=== PATIENT | male | born 1950 | race Caucasian/White ===

== ENCOUNTER 2020-01-04 05:55 | Day surgery (SDC) | payer MEDICARE, OTHER ==
[~2020-01-04] VITALS: Ht 172.7 cm; Wt 83.5 kg
[2020-01-04] VITALS (10 sets, daily range): BP systolic 102–121; BP diastolic 60–79
[~2020-01-04 05:55] MED LIST: AMIO200T61 PO; ASPI-1265 PO; CARV3.12 PO; FLO0.4C PO; FOLI1TAB16 PO; FURO40TA4 PO; HC A30CR2 RC; LACT10SO PO; MULT-1179 PO; POTA20TA19 PO; PROP10TA10 PO
[2020-01-04] MEDS ORDERED: albumin 25% 100mL bottle x 1 IV PRN (07:15)
[2020-01-04] MEDS ORDERED: albumin (human) 25% 100ml IV 100 ML IV ONE (08:49)
[2020-01-04 10:08] LABS: ALBUMIN,BODY FLUID 0.7 G/DL
[2020-01-04 10:20] LABS: TOTAL PROTEIN,BODY FLUID < 2.0 G/DL
[2020-01-04 10:42] LABS: BFAPPEAR HAZY; BFCOLOR YELLOW; BFVOLUME 43 ML
[2020-01-04 10:43] LABS: BF RBC COUNT 303 /CU MM; BF WBC COUNT 76 /CU MM (0-1000)
[2020-01-04 10:44] LABS: LYMPHOCYTES,BODY FLUID 46 %; MONOCYTES,BODY FLUID 50 %; NEUTROPHILS,BODY FLUID 4 %
[2020-01-04 11:11] LABS: BF MESOTHELIAL CELLS FEW
[2020-01-04 11:13] LABS: BF UNCLASSIFIED CELLS FEW
== END 2020-01-04 09:40 | disposition home or self-care (01) ==
LOC: SSTAY O 05:55
PROVIDERS: ATTEND Radiology Diagnostic Radiology
DX: K70.31 Alcoholic cirrhosis of liver with ascites (principal)
CPT/HCPCS: 49083; 82042; 84157; 87070; 89051; P9047

== ENCOUNTER 2020-01-19 09:28 | Day surgery (SDC) | payer MEDICARE, MEDICAID ==
[~2020-01-19] VITALS: Ht 172.7 cm; Wt 79.7 kg
[2020-01-19 09:45] VITALS: BP 115/78
[2020-01-19] MEDS ORDERED: albumin 25% 100mL bottle x 1 IV PRN (09:55)
[2020-01-19] MEDS ORDERED: LEVO50TA8 PO (10:31)
[2020-01-19 11:47] VITALS: BP 107/69
[2020-01-19 12:05] VITALS: BP 109/67
[2020-01-19 12:20] VITALS: BP 100/47
[2020-01-19 12:40] VITALS: BP 95/65
== END 2020-01-19 13:00 | disposition home or self-care (01) ==
LOC: SSTAY O 09:28
PROVIDERS: ATTEND Radiology Vascular & Interventional Radiology
DX: R18.8 Other ascites (principal); I50.9 Heart failure, unspecified; I48.91 Unspecified atrial fibrillation; Z85.828 Personal history of other malignant neoplasm of skin; Z79.899 Other long term (current) drug therapy; Z95.0 Presence of cardiac pacemaker; Z98.890 Other specified postprocedural states; Z79.82 Long term (current) use of aspirin; Z72.89 Other problems related to lifestyle
CPT/HCPCS: 49083; P9047

== ENCOUNTER 2020-02-03 06:48 | Day surgery (SDC) | payer MEDICARE, MEDICAID ==
[2020-02-03] VITALS (7 sets, daily range): BP systolic 99–131; BP diastolic 46–76
[~2020-02-03] VITALS: Ht 172.7 cm; Wt 81.4 kg
[~2020-02-03 06:48] MED LIST changes: -AMIO200T61 PO; -CARV3.12 PO; -FLO0.4C PO; -HC A30CR2 RC; -LACT10SO PO; +LEVO50TA8 PO; -POTA20TA19 PO; -PROP10TA10 PO
[2020-02-03] MEDS ORDERED: albumin 25% 100mL bottle x 1 IV PRN (07:30)
== END 2020-02-03 09:25 | disposition home or self-care (01) ==
LOC: SSTAY O 06:48
PROVIDERS: ATTEND Radiology Vascular & Interventional Radiology
DX: R18.8 Other ascites (principal); K74.60 Unspecified cirrhosis of liver; I50.9 Heart failure, unspecified; I48.91 Unspecified atrial fibrillation; Z85.810 Personal history of malignant neoplasm of tongue; Z95.0 Presence of cardiac pacemaker; Z98.890 Other specified postprocedural states; Z79.82 Long term (current) use of aspirin; Z79.899 Other long term (current) drug therapy; Z80.8 Family history of malignant neoplasm of other organs or systems
CPT/HCPCS: 49083

== ENCOUNTER → 2020-02-22 | Day surgery (SDC) | payer MEDICARE, MEDICAID ==
[~2020-02-22] VITALS: Ht 172.7 cm; Wt 80.7 kg
[2020-02-22] VITALS (7 sets, daily range): BP systolic 94–121; BP diastolic 40–84
[~2020-02-22] MED LIST changes: +B12 INJ; +SPIR50TA5 PO; +albumin 25% 100mL bottle x 1 IV PRN
== END | disposition home or self-care (01) ==
LOC: SSTAY O 05:57
PROVIDERS: ATTEND Radiology Diagnostic Radiology
DX: R18.8 Other ascites (principal); I50.9 Heart failure, unspecified; I48.91 Unspecified atrial fibrillation; K74.60 Unspecified cirrhosis of liver; Z95.0 Presence of cardiac pacemaker; Z98.890 Other specified postprocedural states; Z79.899 Other long term (current) drug therapy; Z79.82 Long term (current) use of aspirin; Z85.810 Personal history of malignant neoplasm of tongue
CPT/HCPCS: 49083; P9047

== ENCOUNTER 2020-03-21 05:58 | Day surgery (SDC) | payer MEDICARE, MEDICAID ==
[~2020-03-21 05:58] MED LIST changes: -albumin 25% 100mL bottle x 1 IV PRN
[2020-03-21 06:15] VITALS: BP 103/70
[2020-03-21 08:22] VITALS: BP 115/78
[2020-03-21 08:37] VITALS: BP 120/76
[2020-03-21 08:52] VITALS: BP 115/77
[2020-03-21 09:00] VITALS: BP 117/76
--- NOTE | 2020-03-21 09:02 | NUR ---
Pt refused IV, refuses albumin replacement. Educated pt on recommendation to replace and why. Answered all of patient questions, Pt verbalized understanding and still refuses. States,"I will do it next time if I need it.".
== END 2020-03-21 09:05 | disposition home or self-care (01) ==
LOC: SSTAY O 05:58
PROVIDERS: ATTEND Radiology Vascular & Interventional Radiology
DX: R18.8 Other ascites (principal); K74.60 Unspecified cirrhosis of liver; I48.91 Unspecified atrial fibrillation; I50.9 Heart failure, unspecified; Z85.810 Personal history of malignant neoplasm of tongue; Z95.0 Presence of cardiac pacemaker; Z98.890 Other specified postprocedural states; Z79.899 Other long term (current) drug therapy; Z79.82 Long term (current) use of aspirin; Z80.8 Family history of malignant neoplasm of other organs or systems
CPT/HCPCS: 49083

== ENCOUNTER 2020-04-04 06:00 | Day surgery (SDC) | payer MEDICARE, MEDICAID ==
[~2020-04-04] VITALS: Ht 172.7 cm; Wt 78.3 kg
[2020-04-04] VITALS (7 sets, daily range): BP systolic 90–112; BP diastolic 62–78
[~2020-04-04 06:00] MED LIST changes: -MULT-1179 PO
[2020-04-04] MEDS ORDERED: albumin 25% 100mL bottle x 1 IV PRN (06:30)
== END 2020-04-04 09:00 | disposition home or self-care (01) ==
LOC: SSTAY O 06:00
PROVIDERS: ATTEND Radiology Vascular & Interventional Radiology
DX: R18.8 Other ascites (principal); K74.60 Unspecified cirrhosis of liver; I50.9 Heart failure, unspecified; I48.91 Unspecified atrial fibrillation; Z85.810 Personal history of malignant neoplasm of tongue; Z95.0 Presence of cardiac pacemaker; Z98.890 Other specified postprocedural states; Z79.82 Long term (current) use of aspirin; Z79.899 Other long term (current) drug therapy
CPT/HCPCS: 49083

== ENCOUNTER 2020-04-18 06:30 | Day surgery (SDC) | payer MEDICARE, MEDICAID ==
[~2020-04-18] VITALS: Ht 172.7 cm; Wt 78.2 kg
[2020-04-18 07:26] VITALS: BP 96/67
[2020-04-18] MEDS ORDERED: albumin 25% 100mL bottle x 1 IV PRN (07:35)
[2020-04-18 08:12] VITALS: BP 96/67
[2020-04-18 08:32] VITALS: BP 101/67
--- NOTE | 2020-04-18 08:40 | NUR ---
Pt refused IV, educated pt on need for albumin after 4L of fluid out. Notified PA. Pt vs stable as charted.
[2020-04-18 08:45] VITALS: BP 99/60
== END 2020-04-18 08:55 | disposition home or self-care (01) ==
LOC: SSTAY O 06:30
PROVIDERS: ATTEND Radiology Vascular & Interventional Radiology
DX: R18.8 Other ascites (principal); K74.60 Unspecified cirrhosis of liver; I50.9 Heart failure, unspecified; I48.91 Unspecified atrial fibrillation; Z85.828 Personal history of other malignant neoplasm of skin; Z95.0 Presence of cardiac pacemaker; Z98.890 Other specified postprocedural states; Z79.899 Other long term (current) drug therapy; Z79.82 Long term (current) use of aspirin; Z80.8 Family history of malignant neoplasm of other organs or systems
CPT/HCPCS: 49083

== ENCOUNTER 2020-05-02 06:01 | Day surgery (SDC) | payer MEDICARE, MEDICAID ==
[~2020-05-02] VITALS: Ht 172.7 cm; Wt 78.8 kg
[2020-05-02 06:10] VITALS: BP 96/65
[2020-05-02] MEDS ORDERED: albumin 25% 100mL bottle x 1 IV PRN (06:30)
[2020-05-02 08:03] VITALS: BP 112/68
[2020-05-02 08:13] VITALS: BP 105/52
--- NOTE | 2020-05-02 08:17 | NUR ---
Pt refused IV start. Pt was educated on albumin replacement. Pt continues refusal. Pt states, "I eat much more protein after I leave here and have an Ensure in the car."
[2020-05-02 08:29] VITALS: BP 105/60
[2020-05-02 08:45] VITALS: BP 109/61
== END 2020-05-02 08:50 | disposition home or self-care (01) ==
LOC: SSTAY O 06:01
PROVIDERS: ATTEND Radiology Vascular & Interventional Radiology
DX: R18.8 Other ascites (principal); K74.60 Unspecified cirrhosis of liver; I50.9 Heart failure, unspecified; I48.91 Unspecified atrial fibrillation; Z95.0 Presence of cardiac pacemaker; Z98.890 Other specified postprocedural states; Z85.828 Personal history of other malignant neoplasm of skin; Z79.899 Other long term (current) drug therapy; Z79.82 Long term (current) use of aspirin
CPT/HCPCS: 49083

== ENCOUNTER 2020-05-16 05:57 | Day surgery (SDC) | payer MEDICARE, MEDICAID ==
[~2020-05-16] VITALS: Ht 172.7 cm; Wt 80.8 kg
[2020-05-16 06:23] VITALS: BP 108/76
[2020-05-16] MEDS ORDERED: albumin 25% 100mL bottle x 1 IV PRN (06:25)
[2020-05-16] MEDS ORDERED: [UNRECOGNIZED DRUG - CODE] PO (06:29)
--- NOTE | 2020-05-16 07:41 | NUR ---
Educated pt on albumin replacement if 4L of ascites fluid is removed. Pt refusing IV start at this time.
[2020-05-16 08:05] VITALS: BP 99/62
[2020-05-16 08:20] VITALS: BP 85/41
[2020-05-16 08:35] VITALS: BP 114/62
[2020-05-16 08:40] VITALS: BP 114/62
== END 2020-05-16 08:45 | disposition home or self-care (01) ==
LOC: SSTAY O 05:57
PROVIDERS: ATTEND Radiology Vascular & Interventional Radiology
DX: K70.31 Alcoholic cirrhosis of liver with ascites (principal); I50.9 Heart failure, unspecified; I48.91 Unspecified atrial fibrillation; Z95.0 Presence of cardiac pacemaker; Z98.890 Other specified postprocedural states; Z85.828 Personal history of other malignant neoplasm of skin; Z79.899 Other long term (current) drug therapy; Z80.8 Family history of malignant neoplasm of other organs or systems
CPT/HCPCS: 49083

== ENCOUNTER 2020-12-29 08:50 | Outpatient (CLI) | payer MEDICARE, MEDICAID ==
[~2020-12-29] VITALS: Ht 167.6 cm; Wt 69.4 kg
[~2020-12-29 08:50] MED LIST changes: +[UNRECOGNIZED DRUG - CODE] PO
[2020-12-29] MEDS ORDERED: CALC1TAB PO (10:28)
[2020-12-29 10:52] LABS: BASOPHILS % (AUTO) 0.2 % (0-1); EOSINOPHILS % (AUTO) 0 % (0-6); LYMPHOCYTES # (AUTO) 0.2 X10'3 (1.1-4.8); LYMPHOCYTES % (AUTO) 2.1 % (21-51); MEAN CORPUSCULAR HEMOGLOBIN 35.7 PG (27.0-31.0); MEAN CORPUSCULAR HGB CONC 33.8 g/dL (33.0-36.5); MEAN CORPUSCULAR VOLUME 105.7 FL (78-98); MEAN PLATELET VOLUME 7.6 FL (7.4-10.4); MONOCYTES # (AUTO) 0.4 X10'3 (0-0.9); MONOCYTES % (AUTO) 4.9 % (2-12); NEUTROPHILS # (AUTO) 7.2 X10'3 (1.8-7.7); NEUTROPHILS % (AUTO) 92.8 % (42-75); PRE OP HEMATOCRIT 35.8 % (42.0-52.0); PRE OP HEMOGLOBIN 12.1 g/dL (14.0-17.9); RED BLOOD COUNT 3.38 X10'6 (4.70-6.10); RED CELL DISTRIBUTION WIDTH 17.4 % (11.5-14.5)
[2020-12-29 10:59] LABS: PRE OP INR 1.2 INR; PRE OP PROTIME 12.1 SECONDS (9.0-12.0)
[2020-12-29 11:03] LABS: ALBUMIN/GLOBULIN RATIO 0.8 (1.1-1.5); ALKALINE PHOSPHATASE 212 IU/L (46-116); BLOOD UREA NITROGEN 77 MG/DL (7-18); BUN/CREATININE RATIO 34.1 (5.4-32.0); CALCIUM 9.3 MG/DL (8.5-10.1); CHLORIDE 105 MMOL/L (99-107); CREATININE 2.26 MG/DL (0.60-1.10); PRE OP ALT 70 U/L (30-65); PRE OP ANION GAP 10 (8-16); PRE OP AST 46 U/L (10-37); PRE OP BILIRUB, TOTAL 1.3 MG/DL (0.0-1.0); PRE OP GLUCOSE 124 MG/DL (70-104); PRE OP POTASSIUM 4.6 MMOL/L (3.4-5.1); PRE OP SODIUM 137 MMOL/L (135-145); TOTAL CARBON DIOXIDE 22.1 MMOL/L (24-32); eGFR 29 ML/MIN
[2020-12-29 11:13] LABS: CLARITY,URINE CLEAR (Clear); COLOR,URINE YELLOW (Yellow); GLUCOSE, URINE NEGATIVE (Neg); KETONES,URINE NEGATIVE (Neg); LEUKOCYTE ESTERASE ,URINE NEGATIVE (Neg); NITRITES, URINE NEGATIVE (Neg); OCCULT BLOOD,URINE TRACE-INTACT (Neg); PROTEIN,URINE NEGATIVE (Neg); UA COLLECTION TYPE CLN CATCH MIDSTREAM; UROBILINOGEN,URINE 0.2 E.U/dL (0.2-1.0)
[2020-12-29 11:14] LABS: BACTERIA,URINE NONE SEEN /HPF (Neg); HYALINE CASTS 0-3 /LPF (NEGATIVE); MUCUS STRANDS NONE SEEN /LPF (Neg); SQUAMOUS EPITHELIAL CELL,UR NONE SEEN /LPF (FEW); TRANSITIONAL EPI CELLS,URINE FEW /HPF; WBC,URINE 0-4 /HPF (0-4)
[2020-12-29 11:25] LABS: PRE OP PLATELET COUNT 70 X10'3 (140-440)
[2020-12-29 11:43] LABS: PLATELET ESTIMATE DECREASED; POLYCHROMASIA FEW
[2020-12-29 11:44] LABS: ANISOCYTOSIS 1+; BURR CELLS 2+; ELLIPTOCYTES 1+; ROULEAUX 1+
[2021-01-03] MEDS ORDERED: ringers solution, lacted 1,000 ML IV SCH (05:00)
[2021-01-03] MEDS ORDERED: cefazolin/dext.iso 2gm/100ml IV ONE (05:30)
[2021-01-03] MEDS ORDERED: famotidine 20mg tablet PO ONE (05:30)
== END 2020-12-29 23:59 | disposition home or self-care (01) ==
LOC: PRE-OP 08:50 → EDSTATUS 01-03 11:45
PROVIDERS: ATTEND Surgery
DX: Z01.812 Encounter for preprocedural laboratory examination (principal); Z01.811 Encounter for preprocedural respiratory examination; K43.9 Ventral hernia without obstruction or gangrene; I50.9 Heart failure, unspecified; R18.8 Other ascites; M47.819 Spondylosis without myelopathy or radiculopathy, site unspecified; M19.012 Primary osteoarthritis, left shoulder; M19.011 Primary osteoarthritis, right shoulder; M85.812 Other specified disorders of bone density and structure, left shoulder; M85.811 Other specified disorders of bone density and structure, right shoulder; Z20.822 Contact with and (suspected) exposure to COVID-19
CPT/HCPCS: 36415; 71046; 80053; 81001; 85008; 85025; 85610; 85730; U0003; U0005; J7120